=== PATIENT | female | born 1995 | race Caucasian/White ===

== ENCOUNTER → 2019-12-12 | Day surgery (SDC) | payer SELFPAY ==
[2019-12-06 11:52] VITALS: BMI 28.0
[~2019-12-12] MED LIST: ACETAMINOPHEN 325 MG TABLET (FP) PO PRN; BACITRACIN 15 GM TUBE TOPICAL OINTMENT ONE; BUPIVACAINE HCL/EPINEPHRINE/PF 30 ML VIAL IJ ONE; BUPIVACAINE HCL/PF 0.25% (2.5MG/ML) 10 ML VIAL IJ ONE; BUPIVACAINE HCL/PF 2.5 MG/ML - 30 ML VIAL IJ ONE; CEFAZOLIN 1 GM/D5W 1 GM/50 ML BAG IVPB SCH; DEXAMETHASONE SOD PHOSPHATE 4 MG/1 ML VIAL ONE; EPINEPHrine/PF 1 MG/1 ML (1:1,000) AMPULE ONE; HALOPERIDOL LACTATE 5 MG/ML ONE; KETOROLAC TROMETHAMINE 30 MG/1 ML VIAL ONE; LACTATED RINGERS SOLUTION 1,000 ML IV SCH; LIDOCAINE HCL 2% (20ML MULTI-DOSE VIAL) ONE; LIDOCAINE HCL/PF 2% SDV 5ML VIAL ONE; MIDAZOLAM HCL 2 MG/2 ML SINGLE DOSE VIAL ONE; NEOSTIGMINE METHYLSULFATE 0.5 MG/ML - 10 ML MDV ONE; ONDANSETRON 4 MG/2 ML VIAL IVPUSH PRN; ONDANSETRON 4 MG/2 ML VIAL ONE; PROMETHAZINE HCL 25 MG/1 ML VIAL IVPUSH PRN; PROPOFOL 20 ML ONE; ROCURONIUM BROMIDE 50 MG/5 ML VIAL ONE; SUCCINYLCHOLINE CHLORIDE 200 MG/10 ML SYRINGE ONE; ceFAZolin SODIUM 1 GM VIAL ONE; ePHEDrine SULFATE 50 MG/1 ML AMPULE ONE; fentaNYL CITRATE 250 MCG/5 ML VIAL ONE; oxyCODONE HCL 5 MG TABLET PO ONE; oxyCODONE HCL 5 MG TABLET PO PRN
--- OUTSIDE RECORDS SUMMARY | 2019-12-12 06:05 | XMS ---
:1995 [address] Organization [facility] Care Team Providers Name Role Phone Lenin Merlos Unavailable Unavailable Tameka Hogan Unavailable Unavailable Akua Lewis Unavailable Unavailable Caroline Quezada Unavailable Unavailable Ganesh Garcia Unavailable Unavailable Jenny Diaz Unavailable Unavailable Mohan Unavailable Unavailable Justin Buckley Unavailable Unavailable Denzel Unavailable Unavailable Jenny Mcgrath Unavailable Unavailable Re-disclosure Warning The records that you are about to access may contain information from federally- assisted alcohol or drug abuse programs. If such information is present, then the following federally mandated warning applies: This information has been disclosed to you from records protected by federal confidentiality rules (42 CFR part 2). The federal rules prohibit you from making any further disclosure of this information unless further disclosure is expressly permitted by the written consent of the person to whom it pertains or as otherwise permitted by 42 CFR part 2. A general authorization for the release of medical or other information is NOT sufficient for this purpose. The Federal rules restrict any use of the information to criminally investigate or prosecute any alcohol or drug abuse patient.The records that you are about to access may contain highly sensitive health information, the redisclosure of which is protected by Article 27-F of the [place] State Public Health law. If you continue you may haveaccess to information: Regarding HIV / AIDS; Provided by facilities licensed or operated by the [facility] Office of Mental Health; or Provided by the [facility] Office for People With Developmental Disabilities. If such information is present, then the following [facility] mandated warning applies: This information has been disclosed to you from confidential records which are protected by state law. State law prohibits you from making any further disclosure of this information without the specific written consent of the person to whom it pertains, or as otherwise permitted by law. Any unauthorized further disclosure in violation of state law may result in a fine or care home sentence or both. A general authorization for the release of medical or other information is NOT sufficient authorization for further disclosure. Allergies and Adverse Reactions Type Description Substance Reaction Status Data Source(s ) 3 NO KNOWN DRUG ALLERGIES NO KNOWN DRUG NEXTGEN ([facility] ALLERGIES [facility]) Encounters Encounter Providers Location Date Indications Data Source(s ) Outpatient Attender: Amor 12/10/2019 NEXTGEN ([facility] Damien 12:40:00 PM [facility] ) Outpatient Attender: Jose 12/04/2019 NEXTGEN ([facility] BatorfalvyReferrer: 09:15:00 AM [facility] ) Outpatient Attender: Amor 12/03/2019 NEXTGEN ([facility] Damien 08:57:00 AM [facility] ) Outpatient Attender: Amor 11/28/2019 NEXTGEN ([facility] RaynerReferrer: 02:45:00 PM [facility]) Outpatient Attender: Amor 11/27/2019 NEXTGEN ([facility] Damien 02:08:00 PM [facility] ) Outpatient Attender: Jose 11/27/2019 NEXTGEN ([facility] BatorfalvyReferrer: 09:00:00 AM [facility] ) Outpatient Attender: Bartolo 11/14/2019 NEXTGEN ([facility] LevyReferrer: Bartolo 10:30:00 AM [facility] ) Outpatient Attender: Tameka 11/13/2019 NEXTGEN ([facility] Hogan 11:02:00 AM [facility] ) Outpatient Attender: Amor 10/30/2019 NEXTGEN ([facility] RaynerReferrer: 03:02:00 PM Medical [place] [facility] Damien EDT [facility] oup PC) Outpatient Attender: Chinchilla 09/27/2019 NEXTGEN ([facility] 04:45:00 PM [facility] - [place] [facility]) Outpatient Attender: Chinchilla 09/20/2019 NEXTGEN ([facility] 04:59:00 PM [facility] - [place] [facility]) Outpatient Attender: Chinchilla 09/17/2019 NEXTGEN ([facility] RaynerReferrer: 02:30:00 PM [facility] - [place] [facility] Damien EDT Medical oup PC) Outpatient Attender: Chinchilla 09/17/2019 NEXTGEN ([facility] Damien 10:00:00 AM Medical - [facility]) Outpatient Attender: Kendra 09/17/2019 NEXTGEN ([facility] AlasioReferrer: 12:00:00 AM [facility] - [place] [facility] Damien EDT Medical oup PC) Outpatient Attender: Chinchilla 09/16/2019 NEXTGEN ([facility] RaynerReferrer: 03:49:00 PM [facility] - [place] [facility] Damien EDT Medical oup PC) Outpatient Attender: Lenin 09/13/2019 NEXTGEN ([facility] Tolunsky 12:05:00 PM [facility] - [place] [facility] ) Outpatient Attender: Lenin 09/09/2019 NEXTGEN ([facility] Tolunsky 03:52:00 PM [facility] Outpatient Attender: Robert 07/09/2019 NEXTGEN ( [facility] Berck 11:56:00 AM [facility] - [place] [facility] ) Outpatient Attender: Robert 07/05/2019 NEXTGEN ( [facility] 01:17:00 PM [facility] - [place] [facility] ) Outpatient Attender: Robert 07/03/2019 NEXTGEN ( [facility] BerckReferrer: Robert 10:40:00 AM Med ica - [place] [facility] ) Outpatient Attender: Robert 07/03/2019 NEXTGEN ( [facility] BerckReferrer: Robert 12:00:00 AM Med ical - [place] [facility]) Outpatient Attender: Kendra 07/03/2019 NEXTGEN ([facility] AlasioReferrer: 12:00:00 AM [facility] [place] [facility] Outpatient Attender: Robert 06/28/2019 NEXTGEN ( [facility] [place] 02:56:00 PM [facility] - [place] [facility]) Outpatient Attender: Lenin 06/10/2019 NEXTGEN ([facility] TolunskyReferrer: 03:00:00 PM [facility]ica [facility] [place] [facility] Outpatient Attender: Tameka 05/22/2019 NEXTGEN ([facility] Hogan 09:47:00 AM [facility] - [place] [facility]) Outpatient Attender: Tameka 05/22/2019 NEXTGEN ([facility] 09:43:00 AM [facility] - [place] [facility]) Outpatient Attender: Tameka 05/17/2019 NEXTGEN ([facility] FlemingReferrer: Tameka 10:40:00 AM Med ical - [place] Hogan [facility] PC) Outpatient Attender: Tameka 05/17/2019 NEXTGEN ([facility] FlemingReferrer: Tameka 12:00:00 AM Med ical - [place] [facility]) Outpatient Attender: Kendra 05/17/2019 NEXTGEN ([facility] AlasioReferrer: Tameka 12:00:00 AM Medi geno - [place] Hogan [facility] PC) Outpatient Attender: Tameka 12/26/2018 NEXTGEN ([facility] Hogan 12:36:00 PM Medical - [place] EST Medical [facility] PC) Outpatient Attender: Tameka 12/26/2018 NEXTGEN ([facility] Hogan 12:27:00 PM Medical - [place] EST [facility] PC) Outpatient Attender: Tameka 12/24/2018 NEXTGEN ([facility] FlemingReferrer: Tameka 12:00:00 PM Med ical - [place] Hogan EST Medical Group PC) Outpatient Attender: Kendra 12/24/2018 NEXTGEN ([facility] AlasioReferrer: Tameka 12:00:00 AM Medi geno - [place] EST Medical Group ) Outpatient Attender: Annabelle 12/04/2018 NEXTGE N ([facility] AlcidesReferrer: 11:35:00 AM Medical - [place] [facility] Medications Medication Brand Start Product Dose Route Administrative Pharmacy [facility] Indications Reaction Description Data Name Date Form Instructions Instructions Source(s) Escitalopra LEXAPR 11/27/ take 1 tablet RP NEXTGEN m 20 MG O 2020 by oral route ([facility] Oral Tablet 12:00: every day M edical - [Lexapro] 00 AM [place] 20 mg 20 mg EDT Medical Group ) This may be an active medication. No end date is available. Escitalopram 5 MG Oral LEXAPRO take 1 tablet by RP NEXTGEN ([facility] Tablet [Lexapro] 5 mg oral route Medical - [place] 5 mg every day [facility]) This may be an active medication. No end date is available. Start date above may not reflect actual date the medication was s tarted. Tacrolimus PROTOPIC 11/14/2019 apply by RP NEXTGEN 0.0003 MG/MG 12:00:00 AM EDT topical route ([facility] Topical every day a Medic al - Mt Ointment thin layer to [facility] [Protopic] 0.03 the affected Group ) % 0.03 % area(s) ; rub in gently and completely as needed This may be an active medication. No end date is available. Metronidazole METROGEL-VAGINAL 11/13/2019 insert 1 RP NEXTGEN 0.0075 MG/MG 12:00:00 AM applicatorful ([facility] Vaginal Gel EDT by vaginal Me dical - [MetroGel] 0.75 route every [place] % 0.75 % day for 5 days M edical at bedtime Group ) Nadolol 20 MG CORGARD take 1 tablet RP NEXTGEN Oral Tablet by oral route ([facility] [Corgard] 20 mg every day Medical - 20 mg [place] [facility] ) This may be an active medication. No end date is available. Start date above may not reflect actual date the medication was s tarted. Nadolol 20 MG NADOLOL 09/13/2019 take 1 Tablet RP NEXTGEN Oral Tablet 20 12:00:00 AM EDT by oral route ([facility] mg 20 mg po qd Medical [facility]) This may be an active medication. No end date is available. Nadolol 20 MG NADOLOL 09/09/2019 take 1 Tablet RP NEXTGEN Oral Tablet 20 12:00:00 AM EDT by oral route ([facility] mg 20 mg po qd Medical [facility]) This may be an active medication. No end date is available. Nadolol 20 MG NADOLOL 06/10/2019 TAKE 1 TABLET NEXTGEN Oral Tablet 20 12:00:00 AM EDT BY ORAL ROUTE ([facility] mg 20 mg EVERY DAY Medica l [facility]) Nystatin NYSTATIN 09/03/2018 apply by NEXTGEN [id number] UNT/ML 12:00:00 AM EDT topical route ([facility] Topical Cream 2 times every [facility] - [place] 100,[address] [facility] Medical unit/gram affected Group PC) 100,000 area(s) unit/gram This may be an active medication. No end date is available. Triamcinolone TRIAMCINOLONE 09/03/2018 [facility] Acetonide 1 ACETONIDE 12:00:00 AM topical ([facility] MG/ML Topical EDT route 2 Med ical - [place] Cream 0.1 % 0.[address] [facility] % day a thin Medical layer to Group PC) the affected area(s) This may be an active medication. No end date is available. Insurance Providers Payer name Policy type Policy ID Covered Covered alliance party's Policy P preeti / Coverage alliance party ID relationship to [place] Inf ormation type byers SELF PAY SP INSURANCE [facility] [id number] [id number] [facility] [id number] PLANS SELF Self Pay [id number] [facility] [id number] [employer] [facility] [id number] Healthcare Problems, Conditions, and Diagnoses Code Display Name Description Problem Type Effective Data Dates Source(s) F41.1 Generalized Generalized anxiety Diagnosis 11/28/2019 NEXT GEN anxiety disorder disorder 02:45:00 PM ([facility] EDT [facility]) Z01.818 Encounter for Pre-operative Diagnosis 11/28/2019 NEXTGEN other examination 02:45:00 PM ([facility] preprocedural EDT Medical - M t examination [facility] Medical Group ) M79.675 Pain in left Pain in left toe(s) Diagnosis 11/27/2019 NEX TGEN toe(s) 09:00:00 AM ([facility] EDT Medical - [facility] Medical Group PC) L60.0 Ingrowing nail Ingrown nail Diagnosis 11/27/2019 NEXTGEN 09:00:00 AM ([facility] EDT Medical - [facility] Group PC) G43.709 Chronic migraine Chronic migraine Diagnosis 09/17/2019 NE XTGEN without aura, not w/o aura, not 02:30:00 PM ([facility] intractable, intractable, w/o EDT Medica l - Mt without status stat migr sco Medi geno migrainosus Group PC) F41.9 Anxiety disorder, Anxiety Diagnosis 09/17/2019 NEXTGEN unspecified 02:30:00 PM ([facility] EDT Medical - [facility] ) Z00.00 Encounter for Annual physical Diagnosis 09/17/2019 NEXTGE N general adult exam 02:30:00 PM ([facility] medical EDT Medical - Mt examination [facility] Medical without abnormal Group PC ) findings Z30.431 Encounter for Encounter for Diagnosis 07/03/2019 NEXTGEN routine checking routine checking of 10:40:00 A M ([facility] of intrauterine intrauterine EDT Medical - [place] contraceptive contracep dev [facility]) Z33.2 Encounter for Encounter for Diagnosis 07/03/2019 NEXTGEN elective with 10:40:00 AM ([facility] termination of abortifacient EDT Medical - Mt medication [facility] Group ) Z34.90 Encounter for Encntr for suprvsn Diagnosis 07/03/2019 NEX TGEN supervision of of normal 12:00:00 AM ([facility] normal , , unsp, EDT M edical - [place] unspecified, unsp trimester [place] Me dical unspecified Group PC) trimester G43.009 Migraine without Nonintractable Diagnosis 06/10/2019 NEXT GEN aura, not migraine, 03:00:00 PM ([facility] intractable, unspecified EDT Medical - M t without status migraine type [place] M edical migrainosus Group PC) Z11.3 Encounter for Encntr screen for Diagnosis 05/17/2019 NEXT GEN screening for infections w sexl 12:00:00 AM ([facility] infections with a mode of transmiss [facility] predominantly 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 12/24/2018 NEXTGEN of menses 12:00:00 PM ([facility] EST [facility] PC) J02.9 Acute pharyngitis, Sore throat Diagnosis 12/04/2018 NEXTG EN unspecified 11:35:00 AM ([facility] EDT [facility]) Surgeries/Procedures Procedure Description Date Indications Data Source(s) OFFICE CONSULTATION OFFICE CONSULTATION 11/28/2019 N EXTGEN ([facility] 12:00:00 AM [facility] P C) REMOVAL OF NAIL BED REMOVAL OF NAIL BED 11/27/2019 N EXTGEN ([facility] 12:00:00 AM [facility] P C) OFFICE/OUTPATIENT OFFICE/OUTPATIENT 11/27/2019 NEXTG EN ([facility] VISIT NEW VISIT NEW 12:00:00 AM [facility] P C) PREV VISIT EST AGE PREV VISIT EST AGE 0709/17/2019 NEX TGEN ([facility] 18-39 18-39 12:00:00 AM [facility] P C) IAAD EIA HEPATITIS B HEPATITIS B SURFACE 07/03/2019 NEXTGEN ([facility] SURFACE ANTIGEN AG IA 12:00:00 AM [facility] P C) HEPATITIS C ANTIBODY HEPATITIS C AB TEST 07/03/2019 NEXTGEN ([facility] 12:00:00 AM [facility] P C) Mifepristone, oral, Mifepristone, oral, 07/03/2019 N EXTGEN ([facility] 200 mg 200 mg 12:00:00 AM [facility] P C) Misoprostol, oral, Misoprostol, oral, 07/03/2019 NEX TGEN ([facility] 200 mcg 200 mcg 12:00:00 AM [facility] P C) TRANSVAGINAL US TRANSVAGINAL US 07/03/2019 NEXTGEN ( [facility] OBSTETRIC OBSTETRIC 12:00:00 AM [facility] P C) OFFICE/OUTPATIENT OFFICE/OUTPATIENT 07/03/2019 NEXTG EN ([facility] VISIT EST VISIT EST 12:00:00 AM [facility] P C) ROUTINE VENIPUNCTURE ROUTINE VENIPUNCTURE 05/17/2019 NEXTGEN ([facility] 12:00:00 AM [facility] P C) N.GONORRHOEAE DNA AMP N.GONORRHOEAE DNA AMP 05/17/2019 NEXTGEN ([facility] PROB PROB 12:00:00 AM [facility] P C) CHYLMD TRACH DNA AMP CHYLMD TRACH DNA AMP 05/17/2019 NEXTGEN ([facility] PROBE PROBE 12:00:00 AM [facility] P C) OFFICE/OUTPATIENT OFFICE/OUTPATIENT 05/17/2019 NEXTG EN ([facility] VISIT EST VISIT EST 12:00:00 AM [facility] P C) STREP A DNA AMP PROBE STREP A DNA AMP PROBE 12/04/2018 NEXTGEN ([facility] 12:00:00 AM [facility]) Results ID Date Data Source [id number] 10/24/2019 07:47:00 PM EDT [facility] Name Value Range Interpretation Code Description Data Katie rce(s) Supporting Document(s ) SARS-COV-2 [facility] RESP Diagnostics QL CHERRI+PROBE This lab was ordered by JOSE MANCILLA [facility] and reported by [facility]IL[facility]ERT[facility]. ID Date Data Source [id number] 10/07/2019 03:23:00 PM EDT [facility] Name Value Range Interpretation Code Description Data Katie rce(s) Supporting Document(s ) SARS-COV-2 [facility] PCR This lab was ordered by [facility] and reported by [facility]. ID Date Data Source [id number] 08/20/2019 11:43:00 AM EDT [facility] Name Value Range Interpretation Code Description Data Katie rce(s) Supporting Document(s ) SARS-COV-2 [facility] PCR This lab was ordered by [facility] [employer] [facility] [employer] [address] and [address] by [facility]. ID Date Data Source [id number] 05/31/2019 12:42:00 AM EDT [facility] Name Value Range Interpretation Code Description Data Katie rce(s) Supporting Document(s ) SARS-COV-2 [facility] PCR This lab was ordered by [facility] and reported by [facility]. Procedure
[2019-12-12 10:36] VITALS: TEMP 97.9
[2019-12-12 15:14] VITALS: BP 118/80; PULSE 56
--- NOTE | 2019-12-14 20:50 | OP ---
DATE OF OPERATION: 12/12/2019 PREOPERATIVE DIAGNOSIS: Lipodystrophy of abdomen, bilateral flanks, and upper and lower back. POSTOPERATIVE DIAGNOSIS: Lipodystrophy of abdomen, bilateral flanks, and upper and lower back. PROCEDURE: Suction lipectomy of abdomen, bilateral flanks, and upper and lower back. ATTENDING SURGEON: Linus Lewis MD ANESTHESIA: General endotracheal. ESTIMATED BLOOD LOSS: Less than 5 mL. SPECIMEN: None. DRAINS: None. COMPLICATIONS: None. CONDITION: Stable to recovery room, extubated. INDICATIONS: The patient is a 24-year-old female who presents with lipodystrophy of the abdomen, bilateral flanks, and upper and lower back. She has previously undergone suction-assisted lipectomy with fat transfer to bilateral buttocks. The patient does not desire any further augmentation of her buttock volume, but does desire contouring of residual lipodystrophy of the abdomen, bilateral flanks, and upper and lower back. The patient is therefore indicated for suction-assisted lipectomy. The risks, benefits, and alternatives of the procedure were discussed with the patient preoperatively in detail, and all questions were answered. The risks include, but are not limited to, bleeding, infection, pain, need for revision or further surgery, contour deformities, damage to neighboring structures including nerves, arteries, veins and tendons. The patient understands these risks and has elected to proceed with surgery. DESCRIPTION OF PROCEDURE: After proper identification and marking of the patient in the preoperative holding area, the patient was transported to the operating room and placed supine on the table while noninvasive anesthesia monitors were applied. Intravenous access was established, general anesthesia was administered, and the patient was intubated without difficulty. SCD boots were applied to bilateral lower extremities. Intravenous antibiotics were then given. At this point, the patient was carefully flipped into a prone position with care taken to pad all pressure points. The patient's previous access incisions were then infiltrated with 1% lidocaine with epinephrine. The patient's upper and lower back as well as upper buttocks and bilateral posterior flanks were prepped and draped in the usual sterile fashion. After a timeout was performed, a number-15 blade was used to incise over the scars of the bilateral upper buttocks as well as the midline back. Standard tumescent solution was then infiltrated into the subcutaneous tissue of the upper and lower back as well as bilateral posterior flanks. Once an adequate amount of time had been given for this to take effect, the MicroAire system was loaded with a 5-mm cannula and was used to perform suction-assisted lipectomy of the upper and lower back as well as bilateral posterior flanks. Once an ideal contour had been reached, the access incisions were closed with a 4-0 PDS sutures in a buried, deep dermal fashion, followed by a 5-0 plain gut in a simple interrupted fashion. Sterile dressings were placed consisting of gauze and Tegaderm, and the patient at this point was carefully flipped back into a supine position. Care was again taken to pad all pressure points. The patient's abdomen as well as bilateral flanks were then prepped and draped sterilely. The previous access incisions at the bilateral extents of the scar were then infiltrated with a similar local anesthetic solution. Number-15 blade was then used to make the bilateral access incisions, and standard tumescent solution was infiltrated into the subcutaneous tissue of the upper and lower abdomen as well as bilateral flanks. A total of 3.5 L of tumescent solution was infiltrated between the anterior and posterior tissue. The MicroAire system was then again used to perform suction-assisted lipectomy of the upper and lower abdomen as well as bilateral flanks. Once an ideal contour had been reached, the lipoaspirate volume was noted to be 3800 mL, and therefore, the access incisions were closed in a similar fashion as to the posterior incisions. Therefore, only one side will be dictated. Sterile dressings were placed anteriorly as well, and at this point, the patient was placed into a compressive garment and then was slowly awakened and extubated without incident and was transported to recovery room in stable condition. LINUS LEWIS M.D. [id number]
== END | disposition home or self-care (01) ==
LOC: FASU 06:00
PROVIDERS: ATTEND Plastic Surgery
PROC: 0J073ZZ Alteration of Back Subcutaneous Tissue and Fascia, Percutaneous Approach (ICD-10-PCS; 2019-12-12)
PROC: 0J083ZZ Alteration of Abdomen Subcutaneous Tissue and Fascia, Percutaneous Approach (ICD-10-PCS; principal; 2019-12-12 08:03)
DX: E88.1 Lipodystrophy, not elsewhere classified (principal)
CPT/HCPCS: 81025; 94760